=== PATIENT | male | born 1975 | race Caucasian/White ===

== ENCOUNTER 2016-09-28 08:37 | Inpatient (IN) | payer OTHER ==
[~2016-09-28 08:37] MED LIST: ADVIL200 MG; ALBUTEROL0.83 MG/ML; ALBUTEROL17 GM; AUGMENTIN 875-11 TAB; IBUPROFEN200 M2 PO; METHYLPREDNISONE; PREDNISONE10 M1 PO; RELPAX20 MG PO; SYMBICORT 16010.2 GM; [UNRECOGNIZED DRUG - OTHER]; [UNRECOGNIZED DRUG - OTHER]
[2016-09-28 09:52] LABS: BASO % 0.2 % (0-2); EOS % 0.2 % (0-7); HCT-HEMATOCRIT 40.3 % (36.0-53.5); IMMATURE GRANULOCYTES ABSOLUTE 0.04 tho/cmm (0-0.03); IMMATURE GRANULOCYTES PERCENT 0.7 % (0-0.3); LYMPH % 13.6 % (20-45); LYMPH ABSOLUTE COUNT 0.8 tho/cmm (0.8-4.5); MCH (MEAN CORPUSCULAR HGB) 33.1 pg (28.0-32.0); MCHC MEAN CORPUSCULAR HGB CONC 34.7 % (32.0-36.0); MCV (MEAN CELL VOLUME) 95.3 fl (82.0-96.0); MEAN PLATELET VOLUME 8.9 cmc (9.4-12.4); MONO % 5.2 % (0-12); MONOCYTE ABSOLUTE COUNT 0.3 tho/cmm (0.0-1.2); NEUTROPHIL ABSOLUTE COUNT 4.6 tho/cmm (1.6-8.0); NEUTROPHIL-AUTOMATED 4.6 tho/cmm (1.6-8.0); NEUTROPHILS % 80.1 % (40-80); PLATELET COUNT 238 tho/cmm (150-450); RED BLOOD COUNT 4.23 mil/cmm (4.40-5.70); RED CELL DISTRIBUTION WIDTH 13.6 % (12.4-16.4); WHITE BLOOD COUNT 5.8 tho/cmm (4.0-10.0)
[2016-09-28 09:57] LABS: PROTHROMBIN TIME 11.2 SECONDS (9.0-13.6)
[2016-09-28 10:04] LABS: ANION GAP 13 mmol/L (0-20); BLOOD UREA NITROGEN 12 mg/dl (6-24); CALCIUM 9.1 mg/dl (8.5-10.5); CARBON DIOXIDE-VENOUS 28 mmol/L (22-32); CHLORIDE 105 mmol/l (96-110); GLUCOSE 91 mg/dL (70-110); POTASSIUM 4.5 mmol/L (3.7-5.1); SODIUM 141 mmol/L (135-145); eGFR VALUE FOR BLACK >90 mL/Min
[2016-09-28] MEDS ORDERED: ULTRAM50 M1 PO (10:23)
[2016-09-29 06:05] LABS: BASO % 0.1 % (0-2); EOS % 0.1 % (0-7); HCT-HEMATOCRIT 30.3 % (36.0-53.5); HGB-HEMOGLOBIN 10.4 gm/dl (13.5-17.0); IMMATURE GRANULOCYTES ABSOLUTE 0.02 tho/cmm (0-0.03); IMMATURE GRANULOCYTES PERCENT 0.2 % (0-0.3); LYMPH % 7.6 % (20-45); LYMPH ABSOLUTE COUNT 0.7 tho/cmm (0.8-4.5); MCH (MEAN CORPUSCULAR HGB) 32.3 pg (28.0-32.0); MCHC MEAN CORPUSCULAR HGB CONC 34.3 % (32.0-36.0); MCV (MEAN CELL VOLUME) 94.1 fl (82.0-96.0); MEAN PLATELET VOLUME 9.1 cmc (9.4-12.4); MONO % 6.4 % (0-12); MONOCYTE ABSOLUTE COUNT 0.6 tho/cmm (0.0-1.2); NEUTROPHIL ABSOLUTE COUNT 8.1 tho/cmm (1.6-8.0); NEUTROPHIL-AUTOMATED 8.1 tho/cmm (1.6-8.0); NEUTROPHILS % 85.6 % (40-80); PLATELET COUNT 212 tho/cmm (150-450); RED BLOOD COUNT 3.22 mil/cmm (4.40-5.70); RED CELL DISTRIBUTION WIDTH 13.4 % (12.4-16.4)
[2016-09-29 06:17] LABS: WHITE BLOOD COUNT 9.4 tho/cmm (4.0-10.0)
[2016-09-30] MEDS ORDERED: ASPIRIN325 M3 PO (10:13)
[2016-09-30] MEDS ORDERED: VANCOMYCIN HCL500 MG IV (10:14)
[2016-09-30] MEDS ORDERED: NORMAL SALINE FL2 ML IV (10:15)
[2016-10-15] MEDS ORDERED: INVANZ1 GM IV (03:35)
[2016-10-15] MEDS ORDERED: TYLENOL325 M2 PO (04:01)
[2016-10-15] MEDS ORDERED: IMITREX100 M2 PO (04:01)
[2016-10-15] MEDS ORDERED: INVANZ IV (04:04)
[2016-10-15] MEDS ORDERED: BENADRYL25 M3 PO (04:18)
[2016-10-15] MEDS ORDERED: CLARITIN10 M6 PO (04:19)
[2016-10-19] MEDS ORDERED: ACTIVASE50 MG IV (14:39)
[2016-10-19] MEDS ORDERED: CUBICIN500 MG PO (14:41)
[2016-10-19] MEDS ORDERED: NORCO 5-325 TA1 EACH PO (14:42)
== END 2016-09-30 13:32 | disposition home health service (06) | DRG 468 ==
LOC: SHSB 08:37 → ORE 11:33 → PACU 14:19 → 5EA 15:15
PROVIDERS: ADMIT Orthopaedic Surgery
PROC: 0SR9029 Replacement of Right Hip Joint with Metal on Polyethylene Synthetic Substitute, Cemented, Open Approach (ICD-10-PCS; principal; 2016-09-28)
PROC: 0SP90JZ Removal of Synthetic Substitute from Right Hip Joint, Open Approach (ICD-10-PCS; 2016-09-28)
PROC: 02HV33Z Insertion of Infusion Device into Superior Vena Cava, Percutaneous Approach (ICD-10-PCS; 2016-09-28)
DX: T84.51XA Infection and inflammatory reaction due to internal right hip prosthesis, initial encounter (principal); E55.9 Vitamin D deficiency, unspecified; E78.5 Hyperlipidemia, unspecified
CPT/HCPCS: C1713; C1751; J0690; J1720; J2270; J3370; J7030; J7512